=== PATIENT | female | born 1995 | race Caucasian/White ===

== ENCOUNTER 2016-09-22 19:33 | Emergency (ER) | payer OTHER ==
[2016-09-22 20:16] LABS: URINE BILIRUBIN NEGATIVE (NEGATIVE); URINE BLOOD TRACE (NEGATIVE); URINE GLUCOSE (UA) NORMAL (NORMAL); URINE KETONE NEGATIVE (NEGATIVE); URINE LEUKOCYTE ESTERASE NEGATIVE (NEGATIVE); URINE NITRATE NEGATIVE (NEGATIVE); URINE PROTEIN NEGATIVE (NEGATIVE); UROBILINOGEN NORMAL mg/dL (<1.0)
[2016-09-22 20:28] LABS: URINE RBC 0-5 /[HPF] (0-2)
== END 2016-09-22 20:56 | disposition home or self-care (01) ==
LOC: ER 19:33
PROVIDERS: General Practice
DX: J06.9 Acute upper respiratory infection, unspecified (principal); R31.9 Hematuria, unspecified; R05 Cough; R30.0 Dysuria; R10.9 Unspecified abdominal pain; E66.01 Morbid (severe) obesity due to excess calories; Z79.899 Other long term (current) drug therapy; R35.0 Frequency of micturition
CPT/HCPCS: 71020; 81001; 87070; 87880; 99070; 99283-25